=== PATIENT | female | born 1955 | race Caucasian/White ===

== ENCOUNTER 2025-08-24 12:45 | Emergency (ER) | payer BC, SELFPAY ==
--- NOTE | 2025-08-24 14:04 | ED_ITS ---
HPI - Back Pain/Injury General Chief Complaint: Back Pain/Injury Stated Complaint: Back Pain Time Seen by Provider: 08/24/25 15:32 Source: patient Mode of arrival: ambulatory Limitations: no limitations History of Present Illness ED Provider: Lillian Smith APRN HPI Narrative: 69 yo female with history of DM, hypothyroidism, GERD, HTN here with complaints of right sided back pain/groin pain x several weeks, may be associated with leg cramping (intermittent). She has been going up and down stairs and cleaning/decorating an apartment. No radiation to the legs. No numbness/tingling in LE. No numbness in the groin. No bowel or bladder incontinence. No fevers/chills. Patient arrives ambulatory. Related Data Previous Rx's ?Medication ?Instructions ?Recorded cephalexin 500 mg capsule 500 mg PO BID #10 caps 08/24 meloxicam 15 mg tablet 15 mg PO DAILY #14 tabs 08/02 02/23 prednisone 20 mg tablet 40 mg (2 x 20 mg) PO DAILY # 10 tabs 08/24/25 Allergies Allergy/AdvReac Type Severity Reaction Status Date / Time hydromorphone Allergy Vomiting Verified 08/24/25 14:07 Review of Systems 2 Review of Systems: Yes all other systems are reviewed and are negative Constitutional: Constitutional: Reports no additional constitutional complaints, Denies body ache(s), Denies chills, Denies fever(s), Denies headache(s) and Denies weakness Eyes: Eyes: Reports no additional eye complaints and Denies change in vision ENT: Reports system reviewed and no additional complaints, except as documented, Denies dizziness, Denies headache(s), Denies nasal congestion, Denies nasal discharge and Denies neck pain Cardiovascular: Cardiovascular: Reports no additional cardiovascular complaints, Denies chest pain, Denies leg edema and Denies dyspnea Respiratory: Respiratory: Reports no additional respiratory complaints, Denies cough and Denies dyspnea Gastrointestinal: Gastrointestinal: Reports no additional gastrointestinal complaints, Denies abdominal pain, Denies diarrhea, Denies nausea and Denies vomiting Genitourinary: Genitourinary: Reports no additional female genitourinary complaints and Denies urinary incontinence Musculoskeletal: Musculoskeletal: Reports no additional musculoskeletal complaints, Reports back pain, Denies arthralgias, Denies joint swelling, Denies neck pain, Denies numbness and Denies tingling Integumentary/Breasts: Skin/Breast: Reports system reviewed and no additional complaints, except as docu and Denies rash Neurologic: Reports system reviewed and no additional complaints, except as documented, Denies Abnormal speech present, Denies dizziness, Denies headache(s), Denies numbness, Denies tingling and Denies weakness PMFSH Past Medical History Attestation statement: The following information was validated with the patient. Source: old records reviewed and nursing notes reviewed Social History Social History Advance Directives: No Advance Directives Information Provided: No Physical Exam 2 Vital Signs: Vital Signs: Last Vital Signs Temp 97.6 F 08/24/25 14:06 Pulse 79 08/24/25 14:06 Resp 18 08/24/25 14:06 BP 153/76 H 08/24/25 14:06 Pulse Ox 97 08/24/25 14:06 O2 Del Method Room Air 08/24/25 14:06 BMI result Body Mass Index 34.2 Const: General: cooperative, healthy appearing, comfortable and no acute distress Orientation/consciousness: patient oriented x3 Limitations: no limitations HEENT: Head: Yes normal to inspection Ears: hearing grossly normal bilaterally General nose exam: Normal external nose present Face and sinus: Yes normal facial exam Mouth: Normal oral and palatal mucosa present Throat: Yes posterior oropharynx normal Eyes: General: appearance normal, both eyes and all related structures P upils: Equal, round and reactive pupils present Neck: Neck: Yes normal visual inspection Chest: Chest palpation & inspection: normal inspection of the chest Resp: Effort & Inspection: normal respiratory effort Auscultation: clear to auscultation bilaterally Cardio: Rate: regular rate Rhythm: regular rhythm Peripheral pulses: P eripheral pulses 2+ throughout GI: Inspection: Yes normal to inspection Palpation (GI): Soft to palpation and nontender Auscultation: normal bowel sounds : General: Yes no CVA tenderness Back/Spine/Pelvis: Back: no CVA tenderness Thoracic/Lumbar Spine: thoracic and lumbar spine normal to inspection Back/spine/pelvis image: 1. TTP over the right buttocks and right SI joint with radiation into the buttocks Skin: General skin exam: no rashes or lesions noted Neuro: General: patient oriented x3, no focal motor deficits and normal sensation to monofilament Cranial nerves: Yes Equal, round and reactive pupils present Cognition (Neuro): normal cognition Speech: No Abnormal speech present Gait exam (Neuro): Normal gait present Motor exam (neuro): 5/5 motor strength present throughout Deep tendon reflexes (DTR's): Right patellar reflex intensity grade: 2+ and Left patellar reflex intensity grade: 2+ Extrem: General: Yes normal to inspection Course Course Course Narrative: 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 Deferred additional HPI, ROS, PE to primary provider. 69 yo female with history of DM, hypothyroidism, GERD, HTN here with complaints of right sided back pain/groin pain x several weeks, may be associated with leg cramping (intermittent). Called her PCP and referred in to the ER to r/o renal colic. Will obtain labs, UA. VSS Reevaluation(s) Reevaluation #1: Urine may be mildly infected. Will send culture. Patient will be treated for UTI with the antibiotic. Low suspicion for pyelonephritis or renal colic. She likely has sacroiliitis or sciatica. Therefore I will send her home on meloxicam which she has taken before and feels like it helps her pain as well as prednisone for 5 days. Reviewed worrisome signs and symptoms of when to return to the emergency room. Comfortable plan for discharge home. Medical Decision Making Medical Decision Making [facility] Narrative: 69 yo female with history of DM, hypothyroidism, GERD, HTN here with complaints of right sided back pain/groin pain x several weeks, may be associated with leg cramping (intermittent). She has been going up and down stairs and cleaning/decorating an apartment. No radiation to the legs. No numbness/tingling in LE. No numbness in the groin. No bowel or bladder incontinence. No fevers/chills. Patient arrives ambulatory. Pain on compression over the right posterior SI joint and right buttocks. No midline tenderness/step offs or deformities, no CVAT. No abdominal pain. Will obtain labs, UA Differential Diagnosis Differential Diagnoses: The differential diagnosis associated with the presentation includes Lumbar radiculopathy, lumbar strain, herniated disc Low suspicion for epidural abscess with no risk factors of same, no neurological deficits or red flag symptoms Low suspicion for ACS with no reports of chest pain, shortness of breath, diaphoresis or vomiting Low suspicion for pyelonephritis or renal colic with no CVA tenderness, urinary symptoms reported Low suspicion for malignancy with no red flag symptoms, more acute onset Low suspicion for cord compression, cauda equina with normal neurological exam and no red flag symptoms Admission/Observation Consideration of admission/observation: Escalation of care including admission/observation considered Lab Data MDM Lab Attestation statement: I reviewed the patient's lab results. 08/24/25 14:46 08/24/25 14:46 Labs: Lab Results 08/24/25 08/24/25 Range/Units 14:42 14:46 WBC 11.6 H (4.8-10.8) X10*3/uL RBC 5.25 (4.20-5.50) X10*6/uL Hgb 13.9 (12.0-16.0) g/dl Hct 42.7 (37.0-47.0) % MCV 81.3 (80.0-98.0) fL MCH 26.5 L (27.0-33.0) pg MCHC 32.6 (31.0-35.0) g/dl RDW 13.2 (11.0-16.0) % Plt Count 398 (160-400) X10*3/uL MPV 9.5 (9.4-12.3) fL Immature Gran % (Auto) 0.4 (0.0-0.4) % Neut % (Auto) 59.9 (45-73) % Lymph % (Auto) 29.7 (20-40) % [place] % (Auto) 6.3 (2-11) % Eos % (Auto) 3.3 (0-4) % Baso % (Auto) 0.4 (0-2) % Lymph # (Auto) 3.5 (1.2-4.9) X10*3/uL [place] # (Auto) 0.7 (0.1-1.2) X10*3/uL Eos # (Auto) 0.4 (0.0-0.4) X10*3/uL Baso # (Auto) 0.1 (0.0-0.2) X10*3/uL Abs Immat Gran (auto) 0.05 H (0.00-0.03) X10*3/uL Absolute Neuts (auto) 7.0 (2.0-8.3) x10*3/uL Absolute Nucleated RBC 0.000 (0.0-0.012) X10*3/uL Nucleated RBC % (auto) 0.0 (0.0-0.2) /100WBC Sodium 139 (135-145) mmol/L Potassium 4.7 (3.3-5.1) mmol/L Chloride 107 (96-108) mmol/L Carbon Dioxide 25 (22-29) mmol/L Anion Gap 12 (12-20) BUN 9 (9-16) mg/dL Creatinine 0.70 (0.5-1.4) mg/dL Estim Creat Clear Calc 75.7 Estimated GFR > 60 Random Glucose 136 H (60-115) mg/dL Calcium 9.4 (8.4-10.2) mg/dL Total Bilirubin 0.4 (0.0-1.0) mg/dL Direct Bilirubin 0.2 (0.0-0.5) mg/dL AST 18 (5-31) U/L ALT 20 (0-31) U/L Alkaline Phosphatase 102 (39-117) U/L Total Protein 7.9 (6.5-8.0) g/dL Albumin 4.4 (3.5-5.0) g/dL Urine Color Yellow Urine Appearance Cloudy Urine pH 5.5 (5.0-9.0) Ur Specific [place] 1.015 (1.005-1.025) Urine Protein Negative (Neg-Trace) mg/dL Urine Glucose (UA) Negative (Negative) mg/dL Urine Ketones Negative (Negative) mg/dL Urine Blood Negative (Negative) Urine Nitrite Positive H (Negative) Ur Leukocyte Esterase Small (1+) H (Negative) Urine RBC 0-2 (0-2) /HPF Urine WBC 6-10 H (0-5) /HPF Ur Squamous Epith Cells 3-5 (0-2) /HPF Urine Bacteria 4+ (None Seen) Hyaline Casts 0-2 (0-2) /LPF Prescription Management I considered prescription management with: Pain Medication and Antibiotic Discharge Plan Discharge Clinical Impression: Sciatica, Acute UTI Patient Disposition: Home, Self-Care Instructions: Urinary Tract Infection in Women (DC), Sciatica (ED), Lower Back Exercises (ED) Additional Instructions: Heat to the area Gentle stretching Keep moving Take the medications as prescribed Follow up with primary care doctor for any continued symptoms Prescriptions: New cephalexin 500 mg capsule 500 mg PO BID Qty: 10 0RF meloxicam 15 mg tablet 15 mg PO DAILY Qty: 14 0RF prednisone 20 mg tablet 40 mg PO DAILY Qty: 10 0RF Referrals: Viky Alcantar NP [Primary Care Provider, Internal Medicine] Print Language: [place] Zealander
[2025-08-24 14:06] VITALS: BP 153/76; PULSE 79; RESP 18; TEMP 36.4; O2SAT 97; BMI 34.2
[2025-08-24 14:54] LABS: MANUAL DIFF FLAG NO
[2025-08-24 14:56] LABS: Hematocrit 42.7 % (37.0-47.0); Hemoglobin 13.9 g/dl (12.0-16.0); Imm Gran Abs Auto 0.05 X10*3/uL (0.00-0.03); Imm Gran Pct Auto 0.4 % (0.0-0.4); Lymphocytes Absolute Auto 3.5 X10*3/uL (1.2-4.9); Mean Corpuscular HGB Conc 32.6 g/dl (31.0-35.0); Mean Corpuscular Hemoglobin 26.5 pg (27.0-33.0); Mean Corpuscular Volume 81.3 fL (80.0-98.0); NRBC Abs Auto 0.000 X10*3/uL (0.0-0.012); NRBC Pct Auto 0.0 /100WBC (0.0-0.2); Platelet Count 398 X10*3/uL (160-400); Red Blood Count 5.25 X10*6/uL (4.20-5.50); White Blood Count 11.6 X10*3/uL (4.8-10.8)
[2025-08-24 14:59] LABS: Appearance Urine Cloudy; Glucose Urine UA Negative (Negative); PH 5.5 (5.0-9.0); Specific Gravity - Urine 1.015 (1.005-1.025); UMIC TRIGGER UACC YES
[2025-08-24 15:02] LABS: UACC Culture Trigger YES
[2025-08-24 15:13] LABS: Alanine Aminotransferase 20 U/L (0-31); Albumin Level 4.4 g/dL (3.5-5.0); Alkaline Phosphatase 102 U/L (39-117); Anion Gap 12 (12-20); Aspartate Amino Transferase 18 U/L (5-31); Blood Urea Nitrogen 9 mg/dL (9-16); Calcium 9.4 mg/dL (8.4-10.2); Carbon Dioxide 25 mmol/L (22-29); Chloride 107 mmol/L (96-108); Creatinine Clr Calc Pharmacy 75.7; Estimated Glomerular Filt Rate > 60; Potassium 4.7 mmol/L (3.3-5.1); Sodium 139 mmol/L (135-145); Total Protein 7.9 g/dL (6.5-8.0)
[2025-08-24 15:59] VITALS: BP 153/76; PULSE 79; RESP 18; TEMP 36.4; O2SAT 97
--- OUTSIDE RECORDS SUMMARY | 2025-08-24 17:00 | XMS_ITS | Patient Health Record ---
Author Organization [facility] Address [address] [place] [address] Care Team Providers Care Bander Name Role Phone HUMBERTO MINOR, NEHA Primary Care Provider Un available WENDY ESCOTO Unavailable [phone] Allergies Allergen (clinical drug ingredient) Drug/Non Drug Allergy documented on EMR Reaction Allergy Type Onset Date Status Information temporarily unavailable Hydromorphone HCl stomach upset Drug Allergy Active Reason For Referral No Information Medications Medication SIG (Take, Route, Frequency, Duration) Notes Start Date End Date Status glipiZIDE ER 5 MG 1 tablet with food Orally Once a day; Duration: 30 day(s) Active Advil 200 MG 1 tablet with food o r milk as needed Orally Three times a day Active amLODIPine Besylate 10 MG 1 tablet Orall y Once a day Active Magnesium 500 MG 1 tablet with a meal Orally Once a day; Duration: 30 day(s) Active Levothyroxine Sodium 125 MCG Orally Active Gabapentin 100 MG 1 capsule Orally Twi ce a day Active Omeprazole 20 MG Orally Act whit metFORMIN HCl Not-Ta trupti Clotrimazole 1 % 1 application Externally Twice a day; Duration: 28 day(s) 04/02/2022 Active Social History Tobacco Use: Social History Observation Description Date Details (start date - stop date) Former Smoker NA - NA Tobacco Use/Smoking Question Answer Notes Are you a former smoker How long has it been since you last smoked? > 10 years Alcohol Screen (Audit-C) Question Answer Notes Did you have a drink contain ing alcohol in the past year? Yes How often did you have a dri nk containing alcohol in the past year? 4 or more times a week (4 points) How many drinks did you have on a typical day when you were drinking in the past year? 1 or 2 drinks (0 point) How often did you have 6 or more drinks on one occasion in the past year? Never (0 point) Points 4 Interpretation Positive Tobacco use other than smoking: Question Answer Notes Are you an other tobacco user? No Problems Problem Type SNOMED Code ICD Code Onset Dates Problem Status W/U Status Risk Notes Problem Information temporarily unavailable Essential (primary) hypertension (I10) Active confirmed Problem Information temporarily unavailable Hypothyroidism, unspecified (E03.9) Active confirmed Problem Information temporarily unavailable Type 2 diabetes mellitus without complications (E11.9) Active confirmed Problem Information temporarily unavailable Gastro-esophageal reflux disease with esophagitis (K21.0) Active confirmed Problem Information temporarily unavailable Lichen sclerosus et atrophicus (L90.0) Active confirmed Problem Information temporarily unavailable 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) Active confirmed Problem Information temporarily unavailable COVID-19 (U07.1) Active confirmed Plan Of Treatment Pending Test Test Name Order Date DIAGNOSTIC MAMMOGRAM, BILATERAL 07/07/20 18 HEMOGLOBIN A1C WITH EST GLUCOSE 04/02/20 22 THIN PREP,HPV,PAYAM IF HPV+ (>29YR)(SCRN) 07/14/2017 MM Digital Mammo Screening 07/14/2017 LT BREAST STEREOTACTIC CORE BX 8 MM Digital Screening Mammogram 3D 2020 MM Digital Screening Mammogram 3D 2021 MM Digital Screening Mammogram 3D 2022 Insurance Providers Payer Name Payer Address Payer Phone Subscriber Number Group Number Insured Name Patient Relationship to Insured Coverage Start Date Coverage End Date [employer] MEDICARE PPO [address] [place] [address] [id number] KENNA MANDUJANO Self - patient is the insured Medical (General) History Medical History History ICD Code Type 2 diabetes mellitus without complic ations E11.9 Gastro-esophageal reflux disease with es ophagitis, without bleeding K21.00 Baig's esophagus without dysplasia K2 2.70 Essential (primary) hypertension I10 Hypothyroidism, unspecified E03.9 Lichen sclerosus et atrophicus L90.0 Other benign mammary dysplasias of left breast N60.82 COVID-19 U07.1 Surgical History Surgery Date(Month/Year) TONSILLECTOMY 1968 CATARACTS 2016 Biopsy on Left Breast (benign) 07/2018 R hip replacement 05/30/19 L hip replacement 03/26/20 LUMPECTOMY LT - atypical torsten regulo hyperplasia, atypical lobular hyperplasia 04/2022 Hospitalization History Reason Date(Month/Year) childbirth see surgical history cellulitis and sepsis (about 1 week) 03/02
--- OUTSIDE RECORDS SUMMARY | 2025-08-24 17:00 | XMS_ITS | Clinical Summary ---
Author Organization [facility] Facility Address [address] [place] [id number] Care Team Providers Care Flatwork Ironer Name Role Phone Unavailable Primary Care Provider Unavailabl e Social History Tobacco Use Types Packs/Day Years Used Date Smoking Tobacco: Never Assessed Comments Unknown Sex and Gender Information Value Date Recorded Sex Assigned at Not on file Legal Sex Female 1:09 PM EDT Gender Identity Not on file Sexual Orientation Not on file Plan of Treatment Health Maintenance Due Date Last Done Comments Breast Cancer Screening 1955 Colorectal Cancer Screening: Annual FOBT 2006 Colorectal Cancer Screening: Colonoscopy 2006 Colorectal Cancer Screening: Sigmoidoscopy 2006 Pneumococcal Vaccine: 50+ Ye ars (2 of 2 - PCV) 09/12/2020 09/12/2019 Diabetes: Hemoglobin A1C 03/31/2023 Diabetes: Ophthalmology Exam 03/31/2023 Diabetes: Pedal Pulse Checked 03/31/2023 Diabetes: Sensory Foot Exam 03/31/2023 Diabetes: Visual Foot Exam 03/31/2023 Influenza Vaccine (#1) 2025 Pneumococcal Vaccine: Peds ( 0 to 5 Years) and At-Risk Patients (6 to 49 Years) Discontinued 09/12/2019 Hepatitis B Vaccine Aged Out No longe r eligible based on patient's age to complete this topic Insurance [facility]
--- OUTSIDE RECORDS SUMMARY | 2025-08-24 17:00 | XMS_ITS | Encounter Summary ---
Author Organization [facility] Address [address] [place] [address] Phone Care Team Providers Care After School Program Director Name Role Phone Unavailable Primary Care Provider Unavailabl e Encounter Details Date Type Department Care Team (Late st Contact Info) Description 04/15/2023 Telephone [facility] [address] [place] [address] Ria Richardson Social History Tobacco Use Types Packs/Day Years Used Date Smoking Tobacco: Never Assessed Comments Unknown Sex and Gender Information Value Date Recorded Sex Assigned at Not on file Legal Sex Female 1:09 PM EDT Gender Identity Not on file Sexual Orientation Not on file documented as of this encounter Miscellaneous Notes * Telephone Encounter - Ria Richardson - 04/15/2023 9:14 AM EDT A nurse from called to see if our office can reschedule a follow up appointment for this PT. Shedid not attend the last, it was listed as cancelled. documented in this encounter Plan of Treatment Not on file documented as of this encounter Visit Diagnoses Not on filedocumented in this encounter
--- OUTSIDE RECORDS SUMMARY | 2025-08-24 17:00 | XMS_ITS | Data Portability ---
Author Organization [facility], [facility] Address [address] [place] [address] Care Team Providers Care Clock Repairer Name Role Phone COLLEEN MADRID Primary Care Provider Assessment No assessment recorded. Plan of Treatment Reminders Order Date Submit Date Provider Last Modified By Organization Details Last Modified Time Details Appointments None recorded. Lab None recorded. Referral None recorded. Procedures None recorded. Surgeries None recorded. Imaging XR, shoulder, 2 or more view - rm 201 4V L shoulder pain. PM 2023 024 [email or web address] [facility], [address] [facility], [facility] [address], [place], [address], 4 08:58:30 Medication Orders None recorded. Patient TargetsNo targets recorded. Patient InstructionsNo instructions recorded. Reason for Referral None Reported. Results Created Date Observation Date Name Description Value Unit Range Abnormal Flag Note LastModifiedBy Organization Detail LastModifiedTime 06/30/2009/18/2022 imagi ng/di agnos tic resul t No observ ation record ed. [email or web address] Not Available 06/03 06:54:44 06/30/20 24 11/04/2022 imagi ng/di agnos tic resul t No observ ation record ed. [email or web address] Not Available 06/03 06:54:47 Result Notes None recorded. Problems Name Problem SNOMED Code Status Onset Date Resolution Date Notes Provider Name and Address Organization Details Recorded Time Shoulder joint pain 473345568 Active 2020 Status : 'A'; Not Available [employer] 4 11:59:27 Pain of left shoulder joint 50806776689834 109 Active 2023 [facility] [place] - [facility] 4 12:43:13 Problem Notes None recorded. Procedures Surgical History Date Name Laterality Status Provider Name and Address Organization Details Recorded Time 4 Sports Shoulder 4&1 completed Alexander Levine PA-C [address] [facility] [address], [place], [address], [facility] - [facility] 03/08/2024 08:55:55 Imaging Results None recorded. Procedure Notes None recorded. Medical Equipment None Reported. Medications Name Sig Start Date Stop Date Status Note LastModified by Organization Details LastModified Time amoxicillin 500 mg capsule TAKE FOUR CAPSULES BY MOUTH 1 HOUR PRIOR TO DENTAL APPOINTME NT. active Not Available Not Available No t Available levothyroxi ne 137 mcg tablet TAKE 1 TABLET BY MOUTH DAILY. active Not Available Not Available No t Available meloxicam 15 mg tablet TAKE ONE TABLET BY MOUTH EVERY DAY WITH MEALS active Not Available Not Available No t Available FreeStyle Lancets 28 gauge USE TO CHECK BLOOD GLUCOSE ONCE DAILY;COM PLETE X2) BS'S PER DAY. active Not Available Not Available No t Available prednisone 20 mg tablet TAKE 2 TABLETS BY MOUTH DAILY FOR 5 DAYS. active Not Available Not Available No t Available glipizide ER 5 mg tablet, extended release 24 hr TAKE 1 TABLET BY MOUTH DAILY. active Not Available Not Available No t Available amlodipine 5 mg tablet TAKE ONE TABLET BY MOUTH DAILY. active Not Available Not Available No t Available amoxicillin 875 mg tablet TAKE ONE TABLET BY MOUTH TWICE A DAY FOR 7 DAYS 03/08 completed Not Available Not Available Not Available amlodipine 10 mg tablet TAKE ONE TABLET BY MOUTH EVERY DAY active Not Available Not Available No t Available hyoscyamine 0.125 mg disintegrat ing tablet DISSOLVE ONE TABLET BY MOUTH DAILY NEEDED FOR SPASM; ALLOW TABLET TO DISSOLVE ON TONGUE FOR ABDOMINAL SPASM. active Not Available Not Available No t Available nitrofurant oin macrocrysta l 100 mg capsule TAKE ONE CAPSULE BY MOUTH TWICE A DAY FOR 5 DAYS. 03/08 completed Not Available Not Available Not Available hydroxyzine HCl 25 mg tablet TAKE ONE TABLET BY MOUTH FOUR TIMES A DAY NEEDED FOR ITCHING FOR 5 DAYS active Not Available Not Available No t Available zolpidem 5 mg tablet TAKE ONE TABLET BY MOUTH DAILY AT BEDTIME NEEDED FOR INSOMNIA active Not Available Not Available No t Available gabapentin 100 mg capsule TAKE ONE CAPSULE BY MOUTH TWICE A DAY active Not Available Not Available No t Available lisinopril 40 mg tablet TAKE ONE TABLET BY MOUTH EVERY DAY active Not Available Not Available No t Available chlorhexidi ne gluconate 0.12 % mouthwash RINSE WITH 15 CC, HOLD FOR 30 SECONDS AND EXPECTORA TE TWO TIMES A DAY FOR 7 DAYS; START TAKING THE DAY AFTER SURGERY. 03/08 completed Not Available Not Available Not Available FreeStyle Lite Meter kit USE TO CHECK BLOOD GLUCOSE X 2 PER DAY. active Not Available Not Available No t Available FreeStyle Lite Strips CHECK BLOOD SUGARS X 2 PER DAY active Not Available Not Available No t Available Trulicity 0.75 mg/0.5 mL subcutaneou s pen injector INJECT 0.75MG 0.5ML) SUBCUTANE OUSLY EVERY WEEK; ROTATE SITES. active Not Available Not Available No t Available Vitals Date Recorded Body height Body mass index (BMI) Body weight Provider Name and Address Organization Details Last Updated DateTime 03/08/2024 152.4 cm 35.2 kg/m2 91659.63 g Alexander Levine PA-C [address] [place] [address], [address], [place] - [facility] 03/08/2024 08:33:21 Social History None recorded. Functional Status None recorded. Mental Status None recorded. Family History Nothing Reported. Medical History No medical history recorded. Gynecological HistoryNo gynecological history recorded. Obstetrics History GPAL:G 0 P 0 0 0 0 Past Encounters Encounter ID Performer Location Encounter Start Date Encounter Closed Date Diagnosis/Indication Diagnosis SNOMED-CT Code Diagnosis ICD10 Code Diagnosis IMO Codes Diagnosis Note [id number] [facility] [address] [place] [address] 03/08/2024 08:28:50 03/30/2024 11:44:33 Pain of left shoulder joint 6407235360 1277426 M25.512 Nontraumat ic partial rupture of left rotator cuff 2698276107 081086 M75.112 Health Concerns Section Related Observation LastModified by Organization Detai ls LastModified Time None Recorded Concern Status LastModified by Organization Details LastModified Time None Recorded Advance Directives Directive None Recorded Payers Insurance Date Sequence Insurance Name Policy Number Policy Bailey Covered Member ID Bailey Member ID Guarantor Name 03/30/2024 1 ELIN (PPO) [id number] Rosalva Carolina Larry [id number] Rosalva Carolina Larry 03/30/2024 2 [facility] (MEDICARE REPLACEMENT PPO) [id number] Rosalva Carolina Larry [id number] Rosalva Juarez 03/30/2024 1 [place] ([place]ICARE [place]ACEMENT PPO) [id number] Rosalva Carolina Larry [id number] Rosalva Carolina Larry Notes Date Note Type Note Provider Name and Address Organization Details Recorded Time 03/08/2024 text/html I am seeing the patient today under the supervision of Dr. Painting who was available but who did not see the patient.HPI:The patient's a 68-year-old right-handed female that comes in the office complaints of discomfort about her left shoulder left shoulder pain started approximately 6 weeks ago. She denies injury. She has pain over the biceps region. She has pain at night when she lies on the right side. She has mild discomfort during the day with use.Past family, medical, social history and review of systems has been reviewed, updated and is located in the patient s chart.Examination: The patient is well appearing and in no apparent distress. Alert and oriented x3. Gait is symmetric. No significant swelling, warmth, erythema the left shoulder. Her active range of motion is for elevation near 175 with mild pain. External rotation to approximately 75 with some mild stiffness and discomfort which matches the contralateral side. Internal rotation to T11 with some mild discomfort. 4/5 strength of the left shoulder the rotator cuff fires well. Peripheral, vascular, lymphatic examination, skin, neurological, coordination, reflexes, sensation are within normal limits.X-rays ordered, obtained and reviewed at [facility] 4 views left shoulder reviewed demonstrates cystic changes the greater tuberosity. There is a type II acromion. There is moderate degenerative changes of the AC joint. I do not appreciate any significant glenohumeral joint arthritis.Impressio n:Degenerative rotator cuff disease left shoulder with underlying stiffness. Possible mild glenohumeral joint arthritis.Plan:I reviewed the x-rays and diagnoses with the patient. Would not surprise me if she had some mild glenohumeral joint arthritic change that we were not seeing on the x-ray given her clinical evaluation and history of total hip replacements. In any event, we discussed conservative management for her shoulder pain. Activity modification discussed. A home exercise program was reviewed. P.r.n. NSAIDs can be used. We discussed risks associated with NSAID use. We discussed role of injection therapies. I injected 80 mg of Kenalog and 8 cc of quarter percent Marcaine half into the subacromial space and half into the glenohumeral joint under sterile conditions. The patient tolerated the injection well. If she does not do well with his conservative management to return to the office for further care. All questions answered to her satisfaction today. Alexander Levine PA-C [address] [facility] [address], [place], [address], [facility] - [facility] 03/08/2024 08:56:39 OBGyn Episode No OBEpisode recorded.
--- OUTSIDE RECORDS SUMMARY | 2025-08-24 17:00 | XMS_ITS | Patient Health Record ---
Author Organization [facility] Address [address] [place] [address] Care Team Providers Care Engineer System Administrator Name Role Phone Markie MINOR, [facility] Primary Care Provider Unavail able Shaka Mejia Unavailable [phone] Reason For Referral No Information Medications Medication SIG (Take, Route, Frequency, Duration) Notes Start Date End Date Status Levothyroxine Sodium .125mg 1 capsule Or ally Once a day Active Lansoprazole 30mg 1 capsule Orally Onc e a day Active Ramipril 5mg 1 capsule Orally Onc e a day Active Magnesium 400 MG 1 tablet Orally Once a day Active Aspir-81 81 MG 1 tablet Orally Once a day Active Lovastatin 10 MG 1 tablet with a meal Orally Once a day Active Problems Problem Type SNOMED Code ICD Code Onset Dates Problem Status W/U Status Risk Notes Problem Information temporarily unavailable Gastroesophageal reflux disease without esophagitis (K21.9) Active confirmed Problem Information temporarily unavailable Barretts esophagus without dysplasia (K22.70) Active confirmed Plan Of Treatment Pending Test Test Name Order Date GI BIOPSY 12/16/2016 Future Test Test Name Order Date UPPER GI ENDOSCOPY 11/24/2012 UPPER GI ENDOSCOPY 09/16/2016 Insurance Providers Payer Name Payer Address Payer Phone Subscriber Number Group Number Insured Name Patient Relationship to Insured Coverage Start Date Coverage End Date [employer] [address] [place] [phone] [id number] KENNA MANDUJANO Self - patient is the insured Medical (General) History Medical History History ICD Code Screening colonoscopy 2009-neg for polyps; did show mild diverticulosis and internal hemorrhoids GERD and Barretts Esophagus- last EGD was in 12/2012--small to moderate-sized HH-long segment of Baig's esophagus from 26 to 32 cm.---all bx neg for dysplasia Hypertension Hypothyroidism Denies FL,DM,CVA,Lung disease,renal dise ase Depression Biopsies neg. for celiac disease in 2012 Hyperlipidemia Surgical History Surgery Date(Month/Year) Cataracts-lens implants both eyes Tonsillectomy
== END 2025-08-24 15:59 | disposition home or self-care (01) ==
PROVIDERS: Nurse Practitioner Family; Emergency Provider Emergency Medicine; PCP Nurse Practitioner Family
DX: N39.0 Urinary tract infection, site not specified (principal); M54.30 Sciatica, unspecified side; M54.89 Other dorsalgia; E11.9 Type 2 diabetes mellitus without complications; I10 Essential (primary) hypertension
CPT/HCPCS: 36415; 80048; 80076; 81001; 85025; 87086; 87088; 87186; 99282; 99283